=== PATIENT | male | born 1955 | race Caucasian/White ===

== ENCOUNTER 2018-09-10 08:49 | Day surgery (SDC) | payer OTHER ==
[2018-09-10] VITALS (9 sets, daily range): BP systolic 97–139; BP diastolic 68–84; PULSE 52–63; TEMP 98
[~2018-09-10] VITALS: Ht 190.5 cm; Wt 81.9 kg
[2018-09-10] MEDS ORDERED: COREG CR20 MG PO (09:32)
[2018-09-10] MEDS ORDERED: ASPIRIN 81M81 MG/TA2 PO (09:32)
[2018-09-10 09:38] LABS: HEMATOCRIT 44.1 % (42.0-52.0); HEMOGLOBIN 14.7 g/dl (13.5-18.0); MEAN CELL VOLUME 93 fl (80.0-100.0); MEAN CORPUSCULAR HEMOGLOBIN 31 pg (27.0-31.0); MEAN CORPUSCULAR HGB CONC 33 g/dl (33.0-37.0); MEAN PLATELET VOLUME 10.3 fl (7.4-10.4); PLATELET COUNT 224 K/mm3 (130-400); RED BLOOD COUNT 4.73 M/mm3 (4.20-5.60); REDCELL DISTRIBUTION WIDTH-CV 12.9 % (11.5-14.5)
[2018-09-10 09:47] LABS: PROTHROMBIN TIME 11.1 SECONDS (9.7-12.8)
[2018-09-10 09:56] LABS: CALCIUM 9.2 mg/dL (8.4-10.2); CREATININE, serum 1.02 mg/dL (0.66-1.25); POTASSIUM 4.1 mmol/L (3.4-5.0)
[2018-09-10 09:58] LABS: CHOLESTEROL RISK RATIO 3.3; MAGNESIUM 2.1 mg/dL (1.6-2.3)
[2018-09-10] MEDS ORDERED: PRILOSEC10 MG PO (12:19)
== END 2018-09-10 14:54 | disposition home or self-care (01) ==
LOC: COL.CAR 08:49
PROVIDERS: Internal Medicine Cardiovascular Disease
DX: R07.89 Other chest pain (principal); I25.10 Atherosclerotic heart disease of native coronary artery without angina pectoris; I73.9 Peripheral vascular disease, unspecified; E78.5 Hyperlipidemia, unspecified; I65.23 Occlusion and stenosis of bilateral carotid arteries; Z79.82 Long term (current) use of aspirin; Z88.5 Allergy status to narcotic agent
CPT/HCPCS: J1644; J2250; J3010; Q9967